=== PATIENT | female | born 1990 | race Hispanic/Latino ===

== ENCOUNTER 2016-12-18 10:35 | Observation (INO) | payer OTHER ==
[2016-12-18] VITALS (14 sets, daily range): BP systolic 98–149; BP diastolic 48–82; PULSE 71–97; RESP 16–18; O2SAT 94–100
[~2016-12-18] VITALS: Ht 149.9 cm; Wt 62.2 kg
[~2016-12-18 10:35] MED LIST: ALBU8.5H4 IH; PREN1TAB80 PO
[2016-12-18] MEDS ORDERED: Ondansetron 2 mg/mL 2 mL Inj IVPUSH ONE (10:40)
--- NOTE | 2016-12-18 10:40 | ED.REPORT ---
HPI-Chest Pain Under 40 Date of Service Dec 18, 2016 ED Provider: Sudeep Flores DO Pt is a 26 y/o healthy female presenting to the ED via EMS from Urgent Care due to near-syncopal episode today. The patient woke up at 05:00 today coughing. 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 Pt denies palpitations, CP, vomiting, fever, chills, SOB. She had a similar episode of lesser severity 2 days ago while washing dishes. There is a family hx of SC and sudden cardiac arrest s/p AICD placement at an early age of 28 in her father. Coincidentally she has been experiencing intermittent fatigue for 1 month. She takes no meds. Nursing Notes Stated Complaint: CHEST PAIN Chief Complaint: General Complaint Nursing Notes Reviewed: Yes Allergies: Coded Allergies: shrimp (Verified Allergy, Mild, TONGUE SWELLS, 12/18/16) PT STATES SHE HAS EATEN IT SINCE AND HAS NOT GOTTEN ANY SWELLING. No Active Prescriptions or Reported Meds General Time Seen by MD: 10:38 Chief Complaint Other (near sync) Hx Obtained From: Patient, EMS Arrived By: Ambulance Sudden in Onset?: Yes Onset Occurred: 1 - 4 hours ago Symptom Duration: 1 - 15 minutes Severity: Current: No pain currently Severity: Maximum: No pain Similar Sx Previous: No Past Medical History Past Medical History Previous suicide attempt Migranes Gestational DM Past Surgical History D&C Implantable control Smoking History Former Smoker Social History Alcohol Use: In recovery Drug Use: Denies drug use Other Social History: Good social support, Lives with children Ambulatory Status Independent Review of Systems Constitutional: Reports: Fatigue, Denies: Chills, Fever Respiratory: Reports: Non-productive cough, Denies: Shortness of breath Cardiovascular: Denies: Chest pain, Dyspnea on exertion, Palpitations GI: Reports: Nausea, Denies: Abdominal pain, Diarrhea, Vomiting Neurologic: Reports: Dizziness, Lightheaded, Syncope (near), Denies: Focal weakness, Numbness Complete sys rev & neg: except as marked. Eyes: Reports: Blurred bilateral, Denies: Visual loss bilateral Physical Exam Initial Vital Signs Vital Signs (First) Date Time Temp Pulse Resp B/P Pulse Ox O2 Delivery O2 Flow Rate FiO2 12/18/16 10:39 36.6 76 18 149/82 100 Room Air 12/18/16 13:00 2 Initial VS: Reviewed, Vital signs normal Head / Eyes: Atraumatic, Normocephalic, PERRL ENT: Mucous membranes moist, Conjunctiva normal, No scleral icterus Neck: Supple, Full range of motion Abdomen / GI: Soft, Non-tender Extremities: Vascular intact, Neuro intact, No swelling, No tenderness Skin: Warm, Dry, No cyanosis Psychiatric: Mood/affect normal, Behavior normal, Normal thought content General/Constitutional: Awake, Alert, No acute distress, Well appearing, Cooperative, Not toxic appearing Respiratory / Chest: Atraumatic, Breath sounds NL, Breath sounds = bilat, No respiratory distress, No rales, No rhonchi, No wheezing, No retractions, No stridor, No chest tenderness, No chest wall deformity, No crepitus Cardiovascular: Heart rate NL, Regular rhythm, Heart sounds NL, No gallop, No murmurs, No rubs, Cap refill not delayed, Peripheral circulation NL Neurologic: Oriented X3, Speech NL, No motor deficits, No sensory deficits, CN II - XII intact, Cerebellar NL, Memory NL Interpretation & Diagnostics Lab Results Interpretation Result Diagram: 12/18/16 1045 12/18/16 1045 Test 12/18/16 10:42 12/18/16 10:45 12/18/16 12:48 12/18/16 12:50 Erythrocyte Sedimentation Rate 7mm/hr (0-32) Procalcitonin 0.02ng/mL (0.00-0.08) Thyroid Stimulating Hormone (TSH) 2.260uIU/mL (0.450-4.500) Free Thyroxine 1.03ng/dL (0.82-1.77) White Blood Count 10.5th/mm3 (3.8-10.1) Red Blood Count 5.23mil/mm3 (3.90-5.20) Hemoglobin 14.6g/dL (12.0-15.6) Hematocrit 43.5% (35.0-46.0) Mean Corpuscular Volume 83.2fL (81-100) Mean Corpuscular Hemoglobin 27.9pg (27.0-35.0) Mean Corpuscular Hemoglobin Concent 33.6% (32.0-37.0) Red Cell Distribution Width 13.7% (12.3-15.4) Platelet Count 157bil/L (150-400) Neutrophils (%) (Auto) 72.2% (40-74) Lymphocytes (%) (Auto) 21.3% (14-46) Monocytes (%) (Auto) 3.9% (4-12) Eosinophils (%) (Auto) 2.3% (0-5) Basophils (%) (Auto) 0.2% (0-3) Sodium Level 140mEq/L (134-144) Potassium Level 3.8mEq/L (3.5-5.2) Chloride Level 103mEq/L (97-108) Carbon Dioxide Level 22mmol/L (18-29) Blood Urea Nitrogen 10mg/dL (6-20) Creatinine 0.50mg/dL (0.57-1.00) Estimat Glomerular Filtration Rate 210mL/min (>59) Glucose Level 74mg/dL (60-99) Calcium Level 9.4mg/dL (8.5-10.1) Magnesium Level 2.1mg/dL (1.6-2.6) Total Bilirubin 0.3mg/dL (0.0-1.2) Aspartate Amino Transf (AST/SGOT) 22U/L (0-50) Alanine Aminotransferase (ALT/SGPT) 19U/L (0-32) Alkaline Phosphatase 65U/L (25-150) Total Creatine Kinase 130U/L (21-215) Creatine Kinase MB 1.9ng/mL (0.0-5.3) Creatine Kinase MB % % (0.0-5.0) Total Protein 8.1g/dL (6.4-8.4) Albumin 4.2g/dL (3.4-5.0) Troponin T < 0.010ug/L (0.0-0.011) Urine Color Yellow (YELLOW) Urine Appearance Clear (CLEAR,HAZY) Urine pH 6.0 (5.0-8.0) Urine Specific [place] 1.030 (1.003-1.035) Urine Protein Negativemg/dL (NEG,TRACE) Urine Glucose (UA) Negativemg/dL (NEGATIVE) Urine Ketones Tracemg/dL (NEGATIVE) Urine Occult Blood Negative (NEGATIVE) Urine Nitrite Negative (NEGATIVE) Urine Bilirubin Negative (NEGATIVE) Urine Urobilinogen Normalmg/dL (NORMAL) Urine Leukocyte Esterase Negative (NEGATIVE) Urine RBC 0-2/hpf (0-2) Urine WBC 0-5/hpf (0-5) Urine Epithelial Cells Few/hpf (NONE-MOD) Urine Crystals None seen (NONE SEEN) Urine Bacteria None/hpf (NONE-FEW) Urine Hyaline Casts None/lpf (NONE) Urine Granular Casts None seen (NONE SEEN) Urine Waxy Casts None seen (NONE SEEN) Urine Red Blood Cell Casts None seen (NONE SEEN) Urine White Blood Cell Casts None seen (NONE SEEN) Urine Mucus Present (None Seen) Urine Trichomonas None seen (NONE SEEN) Urine Yeast None (NONE SEEN) Urinalysis Comment None Urine Culture Reflexed Not indicated Urine HCG, Qualitative Negative (Negative) Hold Urine Received (Received) ECG Interpretation ECG Interpretation: Sinus rhythm rate 77 RsR' with 2mm ST elevation and coincident T wave inversion in V1, V2 without reciprocal ischemic appearing changes Time: 10:55 Interpreted by: ED physician X-Ray Chest Interpretation Chest Xray Interpretation: IMPRESSION: No acute cardiopulmonary disease. Dictated by: Alo Julien RRA Interpreted: Yordy Suarez MD on 12/18/2016 at 11:04 Transcribed by: QUINN on 12/18/2016 at 11:04 View: Portable, 1 view Interpretation / Wet Read by: Interpret - Radiologist Re-Eval/Medical Decision Med Decision/Clinical Course Exertional syncope along with a type I Brugada pattern and a reported family history of cardiac arrest. Concern for Brugada syndrome. Cardiology is immediately contacted with the findings on EKG and has recommended observation in the hospital and cardiology consultation. Source of Hx: Old records, EMS Re-Evaluation/Progress #1: Time of Eval: 12:27 Re-Evaluation/Progress Note: Pt rechecked. Informed pt of need for repeat troponin. The sister is now in the room and is insistent that her father had a cardiac arrest which required he be shocked back to life with paddles. Re-Evaluation/Progress #2: Time of Eval: 12:53 Re-Evaluation/Progress Note: Pt rechecked. Her father is in the room. He states he has been shocked back to life many times. Informed pt of need for admission. Pt understands and agrees with plan for admission. All questions addressed. Consultation #1: Referral / Consult Name: Iza Celaya MD Consulted With: Cardiology Call Returned at: 11:26 Healthcare Applications Analyst: Agrees with evnat, Agrees with plan Note: Will review EKGs, recommends I contact Dr. Grimes Consultation #2: Call Returned at: 11:45 Healthcare Applications Analyst: Agrees with eval, Agrees with plan Note: Case discussed. Recommends admission for observation. Counseled Regarding: Diagnosis, Lab results, Need for admission Discharge & Departure Primary Impression: Near syncope Additional Impressions: Abnormal EKG Family history of sudden cardiac in father Disposition: ADMITTED TO HOSPITAL Discharge Condition All VS Reviewed: Yes Condition: Stable Referrals: Joyce Lee (PCP) Martín Attestation Portions of this note were transcribed by Bird Mccann. I, Dr. Flores personally performed the history, physical exam and medical decision-making; I reviewed and confirmed the accuracy of the information in the transcribed note. Signed by Martín Dawn, 12/18/16 - [phone] copies to: Joyce Lee Timothy S DO Dec 18, 2016 10:40 BIRD MCCANN Dec 18, 2016 10:46
[2016-12-18] MEDS ORDERED: 0.9% Sodium Chloride 1,000 ML IV ONE (10:55)
[2016-12-18 11:04] LABS: BASOPHILS % (AUTO) 0.2 % (0-3); EOSINOPHILS % (AUTO) 2.3 % (0-5); MONOCYTES % (AUTO) 3.9 % (4-12); Mean Corpuscular Hemoglobin 27.9 pg (27.0-35.0); Mean Corpuscular Volume 83.2 fL (81-100); NEUTROPHILS % (AUTO) 72.2 % (40-74); Platelet Count 157 bil/L (150-400)
--- NOTE | 2016-12-18 11:04 | DRSVH ---
PROCEDURE: X-RAY CHEST ONE VIEW, PORTABLE ([id number]) INDICATIONS: chest pain TECHNIQUE: One view of the chest was acquired. COMPARISON: None. FINDINGS: Surgical changes and devices: None. Lungs and pleura: No pleural effusions or pneumothorax. Lungs are clear. Mediastinum: Mediastinal contours appear normal. Heart size is normal. Bones and chest wall: No suspicious bony lesions. Overlying soft tissues appear unremarkable. IMPRESSION: No acute cardiopulmonary disease. Dictated by: Alo BRADFORD Interpreted: Yordy Suarez MD on 12/18/2016 at 11:04 Transcribed by: QUINN on 12/18/2016 at 11:04 Approved by: Yordy Suarez M.D. on 12/18/2016 at 16:40
[2016-12-18] MEDS ORDERED: LidocaineVisc 2%:Antacid 1:1 10 mL Syringe PO ONE (11:25)
[2016-12-18 11:41] LABS: Creatine Kinase 130 U/L (21-215); Magnesium 2.1 mg/dL (1.6-2.6)
[2016-12-18] MEDS ORDERED: Alum-Mag Hydrox-Simeth 30 mL Suspension ONE (13:14)
[2016-12-18] MEDS ORDERED: Alum-Mag Hydrox-Simeth 30 mL Suspension PO PRN (13:35)
[2016-12-18] MEDS ORDERED: Polyethylene Glycol (PEG) 17 Gm Powder PO PRN (13:35)
[2016-12-18] MEDS ORDERED: Ondansetron 2 mg/mL 2 mL Inj IVPUSH PRN (13:35)
--- NOTE | 2016-12-18 14:09 | NUR ---
Admit nurse note Admission assessment completed in the ER with sister, father and daughter at bedside. Pt. 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 States she has been overly fatigued lately, so that she's been drinking red bulls all the time. She also gives hx of anxiety and depression which she was previously treated for but stopped taking meds. "I don't like taking pills." She states she has had a great deal of stress lately and has been coping by "ignoring it." Sister states pt. has been angry a lot. When asked if she feels safe at home pt. hesitates but answers "yes." No further investigation was made as there are so many visitors. Pt. states she is and asks about the medications she has been given, then states she will stop her 2 year old during her stay here. Shrimp allergy verified and sticker placed on name band. Med history obtained, pt states her inhaler is outdated because she hasn't needed it in a while. Report called to Izabella Rader. Social work referral made.
[2016-12-18 14:18] LABS: APPEARANCE,URINE CLEAR (CLEAR,HAZY); COLOR,URINE YELLOW (YELLOW)
[2016-12-18 14:19] LABS: OCCULT BLOOD,URINE NEGATIVE (NEGATIVE); UROBILINOGEN,URINE NORMAL (NORMAL)
--- NOTE | 2016-12-18 15:51 | PCM.HPMED ---
Subjective Date of Service Dec 18, 2016 Primary Provider: Admitting Physician: Larry Whitney MD Primary Care Physician: Joyce Lee Attending Physician: Larry Whitney MD Chief Complaint: Dizziness History of Present Illness: Edith Amos is a health 26 year old woman who presented to the [facility] ED via EMS from Urgent Care with a near-syncopal episode today. The patient states that she felt poorly when she woke up but proceeded to work. 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 She proceeded to sit down but noticed that her vision has been blurry and her tongue was tingling. She states that over the last month she has had multiple episodes of blurred vision and has been feeling very fatigued for the last month. She denies any travel. She denies any palpitations, skipped beats or chest pain. She denies any fevers, chills, weight loss, or night sweats. She has noticed constipation. In the ED her vitals were stable. Her case was reviewed with Dr. Zaman and Dr. Grimes by the ED physician who have agreed to consult. Review of Systems: A comprehensive review of systems was conducted with the patient and found to be negative except as above in the History of Present Illness. Allergies Coded Allergies: shrimp (Verified Allergy, Mild, TONGUE SWELLS, 12/18/16) PT STATES SHE HAS EATEN IT SINCE AND HAS NOT GOTTEN ANY SWELLING. Home Medications None PMH Previous suicide attempt Migraines Gestational DM Surgical History D&C Implantable control Family History The patient notes an extensive family history of cardiac arrest at a young age. Her father has SLE, Rheumatoid arthritis, and possible AICD, but more likely pacemaker. She states she has had multiple family members at a young age due to cardiac arrest. Social History Hx Alcohol Use: Yes Hx Substance Use: Yes (marijuana as teen) Hx Tobacco Use: No Smoking Status: Never Smoker Exam Vital Signs Vital Sign - Last Date Time Temp Pulse Resp B/P Pulse Ox O2 Delivery O2 Flow Rate FiO2 12/18/16 14:15 36.7 97 18 116/71 100 Room Air 12/18/16 14:00 2 Exam General: No acute distress, well-developed, well-nourished, appropriately interactive HEENT: Normocephalic, atraumatic. External ears without defect. Pupils equal, round, and reactive to light and accommodation. Anicteric sclerae, moist conjunctivae, and no lid lag. Oropharynx free of erythema and cobble stoning with moist mucosa. Neck: Supple with full range of motion. No jugular venous distension. No bruits. No lymphadenopathy or thyromegaly. Cardiovascular: Regular rate and rhythm with no murmurs, rubs, or gallops appreciated Pulmonary: Clear to auscultation bilaterally with no crackles, wheezes, or rhonchi. Normal respiratory effort with no use of accessory muscles. Abdomen: Bowel tones present. Soft, nontender, nondistended. No hepatosplenomegaly or masses appreciated. Extremities: No clubbing, cyanosis, edema, or lymphadenopathy appreciated. Skin: Normal temperature, turgor, and texture; no rash, ulcers, or subcutaneous nodules appreciated. Neurological: Cranial nerves grossly intact. Normal muscle strength, tone, and bulk. Reflexes, coordination, and sensory function within normal limits. No known gait impairment. Psychiatric: Normal mood and affect. Alert and oriented to person, place, and time. Lab and Diagnostics Result Diagram: 12/18/16 1045 12/18/16 1045 X-Rays, CTs and MRIs X-RAY CHEST ONE VIEW, PORTABLE IMPRESSION: No acute cardiopulmonary disease. Dictated by: Alo BRADFORD Interpreted: Yordy Suarez MD on 12/18/2016 at 11: 04 Assessment & Plan Edith Amos is a health 26 year old woman who presented to the [facility] ED via EMS from Urgent Care with a near-syncopal episode today. Near-syncopal episode of uncertain etiology -At and the ED there was concern for possible Brugada syndrome however this is unlikely -The EKG is not classically consistent with a Brugada sign -Review of prior EKGs from prior visits do not exhibit the findings noted on today's EKG -Doubt that etiology of near syncope is neurologic so will not be perusing brain imaging -Will await cardiology's recommendations -Telemetry -Orthostatics -ECHO -NPO until cardiology decides on a course of action -COLLIN with reflex give her father's history of SLE and RA -TSH with free T4 CODE STATUS: FULL CODE Patient is admitted under observation status with expected length of stay less than 2 midnights due to severity of presenting symptoms, risk of adverse event, and complexity of treatment plan. Attending Statement The patient was seen and examined independently on 12/18/2016 and case discussed with Dr. Orellana , I agree with the history, exam and plan as outlined in the note above. Lizette Orellana DO Dec 18, 2016 15:51 Larry Whitney MD Dec 18, 2016 16:10
--- NOTE | 2016-12-18 16:08 | NUR ---
ADMIT NOTE Admitted a 26/F into room 3013 this afternoon following report from ED RN Regina Berry. Pt A&Ox4, amb from stretcher to bed and around room with no c/o dizziness or discomfort. She was introduced to staff and room as well as bed controls and call light. Pt on sat 100%. She denies any CP/pressure at this time and is aware to notify staff if these symptoms present. Pt is NPO pending cardiology consult/plan. She is aware of this and compliant. IV intact, flushing without issue. MD in shortly after to assess pt.
--- NOTE | 2016-12-18 18:32 | NUR ---
NPO status Pt NPO pending cardiology consult per hospitalist. Pt frequently asking if she can eat. paged at 1830 and stated if cardiology not by to see pt by 1930, she can eat. Pt updated on this and will pass on to oncoming RN.
[2016-12-19 01:11] VITALS: BP 92/51; PULSE 71; RESP 18; O2SAT 98
[2016-12-19 04:55] VITALS: PULSE 67
[2016-12-19 05:34] VITALS: BP 102/66; PULSE 67; RESP 18; O2SAT 98
[2016-12-19 08:00] VITALS: PULSE 71
[2016-12-19] MEDS ORDERED: Influenza (Adult) Vaccine 0.5 mL Syringe IM ONE (08:30)
--- NOTE | 2016-12-19 09:11 | CONS ---
[address] [address] CONSULTATION REPORT PATIENT: KAMRYN MENDEZ : 1990 MR#: [id number] ADMIT: 12/18/2016 JOB ID: [id number] DATE OF SERVICE: 12/19/2016 ELECTROPHYSIOLOGY CONSULTATION: REQUESTING PHYSICIAN: Larry Whitney M.D. REASON FOR CONSULTATION: Brugada type pattern on EKG. PROBLEM LIST: 1. Family history of mitral valve disease. 2. Possible family history of cardiac arrest, although questionable. 3. Gestational diabetes. 4. Migraines. 5. History of D and C. HOME MEDICATIONS: None. IDENTIFICATION/HISTORY OF PRESENT ILLNESS: The patient is a pleasant 26-year-old woman without significant personal cardiac history who has been feeling ill for the last 3-4 weeks with fatigue and diffuse body aches. Workup has been unrevealing as of yet. She has had a mildly elevated white blood cell count. She ultimately was at work early yesterday morning. She had not eaten or drank. She felt a surge of coughing. She then became nauseated. 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 She became lightheaded, sat down, persisted in lightheadedness and then ultimately went to Urgent Care where her EKG showed sinus rhythm, but ST segments in V1 and V2 questionable for Brugada type pattern. She was sent to the ED and has remained hemodynamically stable. She feels well this morning. She was presyncopal yesterday but denies any history of syncope whatsoever. She tells me that she has felt this way in the past when she was with her son. She has never had an echocardiogram. Her EKG shows sinus rhythm with a Brugada type 1 pattern. Telemetry overnight was unrevealing. Her father has an extensive cardiac history, and has been followed for the last 20+ years by Dr. Weinstein. He has a history of mitral valve disease and underwent mitral valve replacement. This was complicated by an atypical atrial flutter which was difficult to control. He ultimately underwent AV junction ablation and pacemaker implant. There is mention of cardiac arrest by the father and his other daughter. I went through the chart and could not find evidence of this. We are still working on obtaining more records from the father's past history. IMPRESSION AND RECOMMENDATION: The patient is a pleasant 26-year-old woman without significant cardiac history who had an event yesterday associated with near syncope that in my read is most consistent with dehydration and vasovagal activity as opposed to a ventricular dysrhythmia. Her EKG is highly suspicious for Brugada pattern. She does not have a personal history of syncope or cardiac arrest. Both I and Dr. Whitney are investigating the claim of cardiac arrest for her father. We will obtain an echocardiogram as well as a 30 day Holter monitor and I will see her in clinic. If indeed she does have a family history of cardiac arrest and has Brugada pattern, I would recommend a primary prevention ICD implant. If not I am not suspicious about yesterday's events and I think watchful waiting would be in order. PLAN: 1. Echocardiogram. 2. Obtain further records about father's potential history of cardiac arrest. 3. Thirty day event monitor. 4. Followup with me in clinic. 5. If family history is positive for cardiac arrest and patient has Brugada pattern, I think a single-chamber primary prevention ICD is warranted. Thank you very much for allowing me to participate in the care of this patient. Please call with questions. I spent one hour with this patient coordinating care, reviewing her chart, and 50% of this time was spent in counseling.
[2016-12-19 09:59] VITALS: BP 113/72; PULSE 66; RESP 18; O2SAT 98
--- NOTE | 2016-12-19 10:44 | NUR ---
Social Work: Screening / D/C Data: Pt is a 26 y/o female admitted for near syncope brugada sign. Pt's PCP is Dr Lee, pt's insurance is [employer]. EMR reviewed. D/C orders are in. No d/c planning needs anticipated at this time. BREAKFAST AND ROOM ATTENDANT will continue to follow if needs arise. Assessment: Pt who is independent at baseline. Plan: Pt will d/c home via POV today. No d/c planning needs anticipated at this time. BREAKFAST AND ROOM ATTENDANT will continue to follow if needs arise. MARIE Shah
--- NOTE | 2016-12-19 11:52 | DRSVH ---
[facility] [address] [place] [address] Echocardiogram Report Name: KAMRYN MENDEZ NStudy Date: 12/19/2016 He ight: 57 in Hospital Exam Location: [facility] We ight: 137 lb Gender: Female BS A: 1.6 m2 : 1990 Age: 26 yrs BP : 102/66 mmHg Reason For Study: PALP, NEAR SYNCOPE Ordering Physician: HOSPITALIST [facility] Performed By: Elen Figueroa Referring Physician: Skyler EVANGELISTA Interpretation Summary The ejection fraction is estimated to be 60-65%. The right ventricle is normal in size and function. There is no significant valvular heart disease. Procedure: A two-dimensional transthoracic echocardiogram with color flow and Doppler was performed. The study quality was technically adequate. There is no prior echocardiogram noted for this patient. The patient was in normal sinus rhythm during the exam. Left Ventricle: The left ventricle is normal in size, wall thickness, and systolic function without any focal wall motion abnormalities. The ejection fraction is estimated to be 60-65%. Spectral Doppler of the mitral valve shows a normal E/A wave ratio. Right Ventricle: The right ventricle is normal in size and function. Atria: The left atrial size is normal. The right atrium is mildly dilated. There is no Doppler evidence for an atrial septal defect. Mitral Valve: The mitral valve leaflets appear normal. There is no evidence of stenosis, fluttering, or prolapse. There is no mitral regurgitation noted. Aortic Valve: The aortic valve is trileaflet. The aortic valve opens well. There is trivial aortic regurgitation noted. Tricuspid Valve: The tricuspid valve leaflets are thin and pliable. There is a trace or physiologic amount of tricuspid regurgitation. Pulmonary artery pressures cannot be estimated because of the lack of a measurable TR jet velocity. Pulmonic Valve: The pulmonic valve is not well seen, but is grossly normal. There is no pulmonic valvular regurgitation. Great Vessels: The aortic root is normal size. The dimensions of the ascending aorta are normal. The pulmonary artery is normal size. The IVC is of normal diameter and collapses greater than 50% with a sniff. This suggests a low right atrial pressure of 3 mm Hg. Pericardium/ Pleura There is no pericardial effusion. There has been no significant change since the previous study. MMode/2D Measurements & Calculations LVIDd: 4.9 cm LA dimension: 3.2 cm RA long axis LVOT diam: 1.9 cm LVIDs: 2.6 cm AoV Opening FS: 45.9 % LA A2 area: 15.3 cm RA area EPSS: 0.21 cm LA A4 area: 14.6 cm Ao root diam IVSd: 0.72 cm LA length (vol) : 17.7 cm LVPWd: 0.70 cm RA vol asc Aorta Diam LA vol: 39.8 ml : 55.9 ml LA vol index RA Ao Arch Diam (Prox : 35.6 mm/ Trans): 2.5 cm RVDd major IVC diam: 1.7 cm : 5.7 cm LV tovar. diameter/BSA LV sys. diameter/BSA RVD2 (mid) (cm/m^2): 3.1 (cm/m^2): 1.7 : 3.1 cm Doppler Measurements & Calculations Ao V2 max MV E max matthew MV E/A: 1.3 PA V2 max : 167.5 cm/sec : 104.5 cm/sec Med Peak E' Matthew : 104.5 cm/sec Ao max P.2 mmHg MV A max matthew PA mean PG Ao mean P.6 mmHg : 82.0 cm/sec E/E' med: 7.9 LVOT Max Matthew MV P1/2t: 63.2 msec Lat Peak E' Matthew PA Accel Time : 137.4 cm/sec : 0.13 sec MARCELO(I,D): 2.2 cm E/E' lat: 7.4 sev ratio: 0.79 E/e' average Pulm A Revs Dur MV A dur : 0.10 sec MV P1/2t max matthew Ao V2 mean LV V1 max PG PA V2 mean : 112.7 cm/sec : 76.2 cm/sec MVA(P1/2t): 3.5 cm2 Ao V2 VTI: 31.3 cm LV V1 VTI MARCELO(V,D): 2.3 cm2 : 24.6 cm MARCELO indexed to BSA Puljoel Lindsey Revs Dur - MV (cm^2/m^2): 1.4 A Dur: 0.01 msec Electronically signed by: Mick Rhodes on Reading Physician:12/19/2016 11:51 AM
--- NOTE | 2016-12-19 13:30 | PCM.DIMED ---
Paul Teague DO 12/19/16 1330: Discharge Instructions Date of Service Dec 19, 2016 Dates of Hospitalization Dec 18, 2016 at 13:30 Discharge Diagnosis Discharge Diagnosis Near syncopal episode Diet No restrictions Activity No restrictions Call your provider Fever or Chills, Shortness of breath, Bleeding, Chest pain, Vomitting, Excessive diarrhea, Weakness (unilateral) Patient Instructions You are being discharged home today. You were admitted for your near syncopal episode. Your bloodwork and echocardiogram were reassuring and did not indicate any acute heart problems. If you do develop chest pain or have more near syncopal episodes, please go to the ER for evaluation. Please follow up with your PCP within 1-2 weeks. You still have some laboratory values pending and you should follow up about these values with your PCP. Follow-up Provider: Joyce Lee Follow-up with PCP in: 1 week Larry Whitney MD 12/19/16 1636: Discharge Instructions Patient Instructions Dr Grimes will arrange for Holter monitor .Please follow up with Dr grimes Provider: Clinton Grimes MD Follow-up in: 1 week Attending's Statement The patient was seen and examined independently on 12/18/2016 and case discussed with Dr. Maguire , I agree with the discharge instructions as outlined in the note above. Paul Teague DO Dec 19, 2016 13:30 Larry Whitney MD Dec 19, 2016 16:36
[2016-12-19 14:02] VITALS: BP 113/76; PULSE 65; RESP 18; O2SAT 100
--- NOTE | 2016-12-19 17:10 | NUR ---
Discharge Patient ambulated from unit accompanied by family and staff. Patient alert and oriented at time of discharge. Patient denied repeat of syncope episode, dizziness or lightheadedness. No current pain. Patient to be contacted by Cardiology to set up for halter monitor. Discharge instructions/medications reviewed with patient/family prior to discharge. All questions addressed. Patient belongings, discharge instructions in hand. No prescriptions written.
--- NOTE | 2016-12-19 18:06 | PCM.DC.MED ---
Discharge Summary Date of Service Dec 19, 2016 Dates of Hospitalization Date of Hospital Admission Dec 18, 2016 at 13:30 Date of Discharge: Dec 19, 2016 Providers: Admitting Physician: Larry Whitney MD Primary Care Physician: Joyce Lee Attending Physician: Larry Whitney MD Diagnosis at Time of Discharge Diagnosis at Time of Discharge Near syncopal episode Consultations per Dr Grimes The patient is a pleasant 26-year-old woman without significant cardiac history who had an event yesterday associated with near syncope that in my read is most consistent with dehydration and vasovagal activity as opposed to a ventricular dysrhythmia. Her EKG is highly suspicious for Brugada pattern. She does not have a personal history of syncope or cardiac arrest. Both I and Dr. Whitney are investigating the claim of cardiac arrest for her father. We will obtain an echocardiogram as well as a 30 day Holter monitor and I will see her in clinic. If indeed she does have a family history of cardiac arrest and has Brugada pattern, I would recommend a primary prevention ICD implant. If not I am not suspicious about yesterday's events and I think watchful waiting would be in order. PLAN: 1. Echocardiogram. 2. Obtain further records about father's potential history of cardiac arrest. 3. Thirty day event monitor. 4. Followup with me in clinic. 5. If family history is positive for cardiac arrest and patient has Brugada pattern, I think a single-chamber primary prevention ICD is warranted. Procedures XRay, CTs & MRIs X-RAY CHEST ONE VIEW, PORTABLE IMPRESSION: No acute cardiopulmonary disease. Dictated by: Alo Julien [facility] Interpreted: Yordy Suarez MD on 12/18/2016 at 11: 04 Cardiac Echo Impression The ejection fraction is estimated to be 60-65%. The right ventricle is normal in size and function. There is no significant valvular heart disease. Brief History per HPI by Dr Esteban Quezadamarnie Amos is a health 26 year old woman who presented to the [facility] ED via EMS from Urgent Care with a near-syncopal episode today. The patient states that she felt poorly when she woke up but proceeded to work. 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 She proceeded to sit down but noticed that her vision has been blurry and her tongue was tingling. She states that over the last month she has had multiple episodes of blurred vision and has been feeling very fatigued for the last month. She denies any travel. She denies any palpitations, skipped beats or chest pain. She denies any fevers, chills, weight loss, or night sweats. She has noticed constipation. In the ED her vitals were stable. Her case was reviewed with Dr. Zaman and Dr. Grimes by the ED physician who have agreed to consult. Hospital Course Edith Amos is a health 26 year old woman who presented to the [facility] ED via EMS from Urgent Care with a near-syncopal episode today. Near-syncopal episode of uncertain etiology -At and the ED there was concern for possible Brugada syndrome however this is unlikely -The EKG is not classically consistent with a Brugada sign -Review of prior EKGs from prior visits do not exhibit the findings noted on today's EKG -Doubt that etiology of near syncope is neurologic so will not be perusing brain imaging -Cardiology consulted and recommendations as above -Telemetry was unremarkable overnight -Orthostatics benign -ECHO being, results as above -COLLIN with reflex give her father's history of SLE and RA -TSH with free T4 - WNL. -Serum HCG <0.5 -per Dr Grimes's request ,reviewed patient's father chart after obtaining consent from him( patients dad Mr Momo Amos) at bedside.he has history of cardioversion for AFLUTTER BUT NO HISTORY OF CARDIAC ARREST . -Dr Grimes will arrange olter monitor for 1 month and will evaluate her -advised to keep hydrated and follow up with PCP.near syncope may as well be due to dehydration given patient's physically demanding and strenuous work Exam Vital Signs (Last) Date Time Temp Pulse Resp B/P Pulse Ox O2 Delivery O2 Flow Rate FiO2 12/19/16 14:02 36.8 65 18 113/76 100 Room Air 12/18/16 14:00 2 Exam General: Well-developed, well-nourished female who appears in NAD, appropriately interactive HEENT: Normocephalic, atraumatic. External ears without defect. Pupils equal, round, and reactive to light and accommodation. Anicteric sclerae, moist conjunctivae, and no lid lag. Oropharynx free of erythema and cobble stoning with moist mucosa. Neck: Supple with full range of motion. No jugular venous distension. No bruits. Cardiovascular: Regular rate and rhythm with no murmurs, rubs, or gallops appreciated Pulmonary: Clear to auscultation bilaterally with no crackles, wheezes, or rhonchi. Normal respiratory effort with no use of accessory muscles. Abdomen: Bowel tones present. Soft, nontender, nondistended. Extremities: No clubbing, cyanosis, edema, or lymphadenopathy appreciated. Skin: Normal temperature, turgor, and texture; no rash, ulcers, or subcutaneous nodules appreciated. Neurological: Cranial nerves grossly intact. Normal muscle strength, tone, and bulk. Reflexes, coordination, and sensory function within normal limits. Psychiatric: Normal mood and affect. Alert and oriented to person, place, and time. Test 12/18/16 10:42 12/18/16 10:45 12/18/16 12:48 12/18/16 12:50 Erythrocyte Sedimentation Rate 7mm/hr (0-32) Procalcitonin 0.02ng/mL (0.00-0.08) Thyroid Stimulating Hormone (TSH) 2.260uIU/mL (0.450-4.500) Free Thyroxine 1.03ng/dL (0.82-1.77) White Blood Count 10.5th/mm3 (3.8-10.1) Red Blood Count 5.23mil/mm3 (3.90-5.20) Hemoglobin 14.6g/dL (12.0-15.6) Hematocrit 43.5% (35.0-46.0) Mean Corpuscular Volume 83.2fL (81-100) Mean Corpuscular Hemoglobin 27.9pg (27.0-35.0) Mean Corpuscular Hemoglobin Concent 33.6% (32.0-37.0) Red Cell Distribution Width 13.7% (12.3-15.4) Platelet Count 157bil/L (150-400) Neutrophils (%) (Auto) 72.2% (40-74) Lymphocytes (%) (Auto) 21.3% (14-46) Monocytes (%) (Auto) 3.9% (4-12) Eosinophils (%) (Auto) 2.3% (0-5) Basophils (%) (Auto) 0.2% (0-3) Sodium Level 140mEq/L (134-144) Potassium Level 3.8mEq/L (3.5-5.2) Chloride Level 103mEq/L (97-108) Carbon Dioxide Level 22mmol/L (18-29) Blood Urea Nitrogen 10mg/dL (6-20) Creatinine 0.50mg/dL (0.57-1.00) Estimat Glomerular Filtration Rate 210mL/min (>59) Glucose Level 74mg/dL (60-99) Calcium Level 9.4mg/dL (8.5-10.1) Magnesium Level 2.1mg/dL (1.6-2.6) Total Bilirubin 0.3mg/dL (0.0-1.2) Aspartate Amino Transf (AST/SGOT) 22U/L (0-50) Alanine Aminotransferase (ALT/SGPT) 19U/L (0-32) Alkaline Phosphatase 65U/L (25-150) Total Creatine Kinase 130U/L (21-215) Creatine Kinase MB 1.9ng/mL (0.0-5.3) Creatine Kinase MB % % (0.0-5.0) Total Protein 8.1g/dL (6.4-8.4) Albumin 4.2g/dL (3.4-5.0) Troponin T < 0.010ug/L (0.0-0.011) Urine Color Yellow (YELLOW) Urine Appearance Clear (CLEAR,HAZY) Urine pH 6.0 (5.0-8.0) Urine Specific [place] 1.030 (1.003-1.035) Urine Protein Negativemg/dL (NEG,TRACE) Urine Glucose (UA) Negativemg/dL (NEGATIVE) Urine Ketones Tracemg/dL (NEGATIVE) Urine Occult Blood Negative (NEGATIVE) Urine Nitrite Negative (NEGATIVE) Urine Bilirubin Negative (NEGATIVE) Urine Urobilinogen Normalmg/dL (NORMAL) Urine Leukocyte Esterase Negative (NEGATIVE) Urine RBC 0-2/hpf (0-2) Urine WBC 0-5/hpf (0-5) Urine Epithelial Cells Few/hpf (NONE-MOD) Urine Crystals None seen (NONE SEEN) Urine Bacteria None/hpf (NONE-FEW) Urine Hyaline Casts None/lpf (NONE) Urine Granular Casts None seen (NONE SEEN) Urine Waxy Casts None seen (NONE SEEN) Urine Red Blood Cell Casts None seen (NONE SEEN) Urine White Blood Cell Casts None seen (NONE SEEN) Urine Mucus Present (None Seen) Urine Trichomonas None seen (NONE SEEN) Urine Yeast None (NONE SEEN) Urinalysis Comment None Urine Culture Reflexed Not indicated Urine HCG, Qualitative Negative (Negative) Hold Urine Received (Received) Test 12/18/16 14:23 12/19/16 12:15 D-Dimer < 0.50mg/L FEU (<0.50) HCG Beta Subunit 0.500mIU/mL Discharge Medications No Active Prescriptions or Reported Meds Followup Plan Disposition: Home Discharge Diet: No restrictions Discharge Activity: No restrictions Patient Instructions Dr Grimes will arrange for Holter monitor .Please follow up with Dr grimes Follow-up Provider: Joyce Lee Follow-up with PCP in: 1 week Provider: Clinton Grimes MD Follow-up in: 1 week Attending Statement The patient was seen and examined independently on 12/19/2016 and case discussed with Dr. Teague , I agree with the discharge summary as outlined in the note above. copies to: Clinton Grimes MD; Joyce Lee Hong D DO Dec 19, 2016 18:06 Larry Whitney MD Dec 20, 2016 07:18
[2016-12-26 12:08] LABS: Antiribosomal P Antibodies <0.2 AI (0.0-0.9); Antiscleroderma - 70 AB <0.2 AI (0.0-0.9)
== END 2016-12-19 16:15 | disposition home or self-care (01) ==
LOC: EDUNIT# 10:35 → SED 10:35 → EDBD 10:35 → MPC 13:30
PROVIDERS: ADMIT Internal Medicine; ATTEND Internal Medicine
DX: R55 Syncope and collapse (principal); R11.0 Nausea; R42 Dizziness and giddiness; H53.8 Other visual disturbances; R94.31 Abnormal electrocardiogram [ECG] [EKG]; Z23 Encounter for immunization
CPT/HCPCS: 36415; 71010; 80053; 81000; 81025; 82550; 82553; 82948; 83735; 84145; 84439; 84443; 84484; 84702; 85025; 85378; 85651; 86038; 90674; 93005; 96361; 96374; 96375; 99285; C8929; G0378; J2060; J2405; J7030

== ENCOUNTER 2017-05-06 14:17 | Emergency (ER) | payer OTHER ==
[~2017-05-06] VITALS: Ht 142.2 cm; Wt 60.5 kg
[2017-05-06 14:29] VITALS: BP 135/79; PULSE 81; RESP 16; O2SAT 100
[2017-05-06 15:24] LABS: BASOPHILS % (AUTO) 0.3 % (0-3); EOSINOPHILS % (AUTO) 2.3 % (0-5); MONOCYTES % (AUTO) 5.3 % (4-12); Mean Corpuscular Volume 84.1 fL (81-100); NEUTROPHILS % (AUTO) 68.9 % (40-74); Platelet Count 167 bil/L (150-400)
--- NOTE | 2017-05-06 15:53 | DRSVH ---
PROCEDURE: X-RAY CHEST ONE VIEW, PORTABLE ([id number]) INDICATIONS: PAIN TECHNIQUE: One view of the chest was acquired. COMPARISON: [facility], CR, XR CHEST 1VW (PORTABLE), 12/18/2016, 10:45. FINDINGS: Surgical changes and devices: None. Lungs and pleura: No pleural effusions or pneumothorax. Lungs are clear. Mediastinum: Mediastinal contours appear normal. Heart size is normal. Bones and chest wall: No suspicious bony lesions. Overlying soft tissues appear unremarkable. IMPRESSION: No acute cardiopulmonary disease process. Dictated by: Yasmine Martinez MD, PhD on 05/06/2017 at 15:51 Approved by: Yasmine Martinez MD, PhD on 05/06/2017 at 15:52
[2017-05-06 15:56] VITALS: BP 141/81; PULSE 74; RESP 16; O2SAT 100
[2017-05-06 15:57] LABS: TROPONIN T < 0.010 ug/L (0.0-0.011)
[2017-05-06 16:05] LABS: Magnesium 1.8 mg/dL (1.6-2.6)
--- NOTE | 2017-05-06 16:22 | ED.REPORT ---
HPI-Chest Pain Under 40 Date of Service May 06, 2017 ED Provider: Anthony James MD Pt is a 26 year old female presenting to the ED complaining of intermittent chest pain and pressure for the last week and SOB onset last night around 2100 at rest. Associated symptoms include fatigue, dizziness, lightheadedness, dry mouth, non productive cough, nausea, and a decreased appetite. Denies diaphoresis, LE swelling, fever, or vomiting. Nursing Notes Stated Complaint: CHEST PAIN,DIZZY,DIFFICULTY BREATHING Chief Complaint: Chest Pain-Non Cardiac Nature Nursing Notes Reviewed: Yes Allergies: Coded Allergies: shrimp (Verified Allergy, Mild, TONGUE SWELLS, 12/18/16) PT STATES SHE HAS EATEN IT SINCE AND HAS NOT GOTTEN ANY SWELLING. No Active Prescriptions or Reported Meds General Time Seen by MD: 16:19 Chief Complaint Chest pain, Shortness of breath Hx Obtained From: Patient Arrived By: Walk-in Sudden in Onset?: No Onset Occurred: Yesterday Symptom Duration: Since onset Quality: Painful Severity: Current: Moderate Severity: Maximum: Moderate Recent Healthcare: No recent doctor visit, No recent hospitalization Similar Sx Previous: Yes Past Medical History Past Medical History Notes: Patient with admission for syncope and initial concern for an EKG at the [facility] diagnostic but concerning for Brugada syndrome, workup including echocardiogram, cardiac consultation was negative. Additionally turns out the initial reported family history of sudden cardiac was inaccurate, family member was cardioverted for atrial fibrillation instead according to notes in the EMR Past Medical History Previous suicide attempt Migranes Gestational DM Past Surgical History D&C Implantable control Family History Father has hx of blood clots, sister has hx of sickle cell anemia, grandfather of sudden [place] Smoking History Never Smoker Social History Alcohol Use: In recovery Drug Use: Denies drug use Other Social History: Good social support, Lives with children Ambulatory Status Independent Review of Systems Reports dry mouth, decreased appetite Constitutional: Reports: Fatigue, Denies: Fever Respiratory: Reports: Non-productive cough, Shortness of breath Cardiovascular: Reports: Chest pain GI: Reports: Nausea, Denies: Vomiting Musculoskeletal: Denies: Extremity swelling Skin: Denies Diaphoresis Neurologic: Reports: Dizziness, Lightheaded Complete sys rev & neg: except as marked. Physical Exam Initial Vital Signs Vital Signs (First) Date Time Temp Pulse Resp B/P Pulse Ox O2 Delivery O2 Flow Rate FiO2 05/06/17 14:29 37.0 81 16 135/79 100 Room Air Initial VS: Reviewed Head / Eyes: Atraumatic, Normocephalic, PERRL ENT: Mucous membranes moist, Conjunctiva normal, No scleral icterus Neck: Supple, Non-tender, Full range of motion Abdomen / GI: Soft, Non-tender, No guarding, No rebound, No distention Back: No CVA tenderness Extremities: Vascular intact, Neuro intact, No swelling, No tenderness Skin: Warm, Dry, No cyanosis Neurologic: Alert, Oriented, Nonfocal Psychiatric: Mood/affect normal, Behavior normal, Normal thought content General/Constitutional: Awake, Alert, No acute distress, Well appearing, Well developed, Well hydrated Respiratory / Chest: Atraumatic, Breath sounds NL, Breath sounds = bilat, No respiratory distress Cardiovascular: Heart rate NL, Regular rhythm, Heart sounds NL, No gallop, No murmurs, No rubs, Cap refill not delayed Interpretation & Diagnostics Lab Results Interpretation Result Diagram: 05/06/17 1510 05/06/17 1510 Test 05/06/17 15:10 05/06/17 15:18 White Blood Count 9.7th/mm3 (3.8-10.1) Red Blood Count 4.85mil/mm3 (3.90-5.20) Hemoglobin 13.6g/dL (12.0-15.6) Hematocrit 40.8% (35.0-46.0) Mean Corpuscular Volume 84.1fL (81-100) Mean Corpuscular Hemoglobin 28.0pg (27.0-35.0) Mean Corpuscular Hemoglobin Concent 33.3% (32.0-37.0) Red Cell Distribution Width 14.1% (12.3-15.4) Platelet Count 167bil/L (150-400) Neutrophils (%) (Auto) 68.9% (40-74) Lymphocytes (%) (Auto) 23.0% (14-46) Monocytes (%) (Auto) 5.3% (4-12) Eosinophils (%) (Auto) 2.3% (0-5) Basophils (%) (Auto) 0.3% (0-3) Sodium Level 136mEq/L (134-144) Potassium Level 3.7mEq/L (3.5-5.2) Chloride Level 102mEq/L (97-108) Carbon Dioxide Level 21mmol/L (18-29) Blood Urea Nitrogen 13mg/dL (6-20) Creatinine 0.48mg/dL (0.57-1.00) Estimat Glomerular Filtration Rate 221mL/min (>59) Glucose Level 91mg/dL (60-99) Calcium Level 8.7mg/dL (8.5-10.1) Magnesium Level 1.8mg/dL (1.6-2.6) Total Bilirubin 0.2mg/dL (0.0-1.2) Aspartate Amino Transf (AST/SGOT) 24U/L (0-50) Alanine Aminotransferase (ALT/SGPT) 20U/L (0-32) Alkaline Phosphatase 52U/L (25-150) Troponin T < 0.010ug/L (0.0-0.011) Total Protein 7.3g/dL (6.4-8.4) Albumin 3.9g/dL (3.4-5.0) Hold Medley Top Tube Received (Received) Lab Results Interpretation: CBC normal CMP normal Troponin negative ECG Interpretation ECG Interpretation: Normal sinus. Benign repolarization pattern reminiscient but not diagnostic for Brugada syndrome. Please see previous workup which was negative for Brugada syndrome. Time: 14:45 Interpreted by: ED physician Normal ECG Interpretation: Normal rate (73) X-Ray Chest Interpretation Chest Xray Interpretation: IMPRESSION: No acute cardiopulmonary disease process. Dictated by: Yasmine Martinez MD, PhD on 05/06/2017 at 15:51 View: Portable, 1 view Interpretation / Wet Read by: Interpret - Radiologist Re-Eval/Medical Decision Med Decision/Clinical Course This is a pleasant 18-year-old female presents with a sense of mild shortness of breath started yesterday. Patient said she should come get checked out, symptoms are improved today. She had a recent hospitalization for "abnormal EKG -turning out that there was concern for possible Brugada syndrome in the setting of syncope, fortunately work up was negative. She does not appear short of breath, clinically appears well, has normal vitals, normal physical exam, normal labs, unchanged EKG, and a normal chest x-ray. She has no risk factors or features to suggest pulmonary embolism, per rule is negative. The patient is comfortable with reassurance. I am not finding indication pursue additional testing. The patient is a received routine and return precautions and is discharged in good condition. Source of Hx: Old records Re-Evaluation/Progress : Time of Eval: 16:33 Patient Status: Condition improved Re-Evaluation/Progress Note: Updated on x ray and lab results. Discussed plan for discharge. Pt understands and agrees. Differential Diagnosis: Positive: Chest pain, Negative: Acute coronary syndrome, Acute myocardial infarct, Aortic dissection, Aortic stenosis, Asthma exacerbation, Congestive heart failure, Dysrhythmia, Gun shot wound chest, Pneumonia, Pneumothorax, Pulmonary edema, Pulmonary embolism, Stab wound chest, Stable angina, Unstable angina Counseled Regarding: Diagnosis, Lab results, Need for follow-up, When/why to return to ED Discharge & Departure Primary Impression: Dyspnea Dyspnea type: unspecified Qualified Code: R06.00 - Dyspnea, unspecified Disposition: Home Discharge Condition All VS Reviewed: Yes Condition: Improved Additional Instructions: 1. A dangerous cause of the shortnes of breath was not identified. 2. Your EKG and Chest Xray did not reveal a dangerous problem. 3. Activities as tolerated. 4. Return if new or worsening symptoms. Referrals: Joyce Lee (PCP) Samuelibal Attestation Portions of this note were transcribed by Angelique Jorgensen. I, Dr. James personally performed the history, physical exam and medical decision-making; I reviewed and confirmed the accuracy of the information in the transcribed note. Signed by: Martín Mathews, 05/06/2017. copies to: Joyce Lee Matthew F MD May 06, 2017 16:22 ANGELIQUE JORGENSEN May 06, 2017 16:29
[2017-05-06 16:55] VITALS: BP 135/88; PULSE 78; RESP 18; O2SAT 100
== END 2017-05-06 16:56 | disposition home or self-care (01) ==
LOC: SED 14:17
DX: R06.00 Dyspnea, unspecified (principal); Z91.013 Allergy to seafood

== ENCOUNTER → 2017-05-26 | Day surgery (SDC) | payer OTHER ==
[2017-05-26] VITALS (13 sets, daily range): BP systolic 94–112; BP diastolic 51–74; PULSE 78–90; RESP 13–25; O2SAT 98–100
[~2017-05-26] VITALS: Ht 149.9 cm; Wt 60.0 kg
[~2017-05-26] MED LIST changes: -ALBU8.5H4 IH; +DEXTROSE 5% IV ONE; +Heparin 10,000 Unit/1,000 mL NS Premix IV ONE; +Isoproterenol 200 mCg/mL 1 mL Inj IV ONE; +KEN25CR EXT; +Ondansetron 2 mg/mL 2 mL Inj IVPUSH PRN; -PREN1TAB80 PO; +PROCAINAMIDE IV ONE; +fentaNYL-PF 50 mCg/mL 2 mL Inj ONE
--- NOTE | 2017-05-26 07:00 | NUR ---
ADMISSION NOTE FEMALE PT ADMITTED FOR EP STUDY. DISCUSSED PLAN OF CARE WITH PT. SEE ADMIT AND FLOW SHEET
[2017-05-26 07:37] LABS: BASOPHILS % (AUTO) 0.2 % (0-3); EOSINOPHILS % (AUTO) 3.9 % (0-5); MONOCYTES % (AUTO) 5.8 % (4-12); Mean Corpuscular Hemoglobin 28.1 pg (27.0-35.0); Mean Corpuscular Volume 83.6 fL (81-100); NEUTROPHILS % (AUTO) 60.6 % (40-74); Platelet Count 169 bil/L (150-400)
[2017-05-26 08:11] LABS: INR 1.01 ratio
--- NOTE | 2017-05-26 11:12 | NUR ---
Received Received from director of labor and delivery about 1105. VSS. Tele SR. Right groin without bleeding or hematoma. Groin precautions reviewed. Verbalizes understanding. Continue to monitor per order.
--- NOTE | 2017-05-26 11:52 | PROCED ---
[address] [address] PROCEDURE NOTE PATIENT: KAMRYN COLIN : 1990 MR#: [id number] ADMIT: 05/26/2017 JOB ID: [id number] DATE OF SERVICE: 05/26/2017 PREOPERATIVE DIAGNOSIS(ES): 1. 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 2. Family history of sudden cardiac arrest. POSTOPERATIVE DIAGNOSIS(ES): Negative electrophysiology study. PROCEDURE PERFORMED: 1. Comprehensive electrophysiology study with left atrial pacing and recording via the coronary sinus catheter. 2. Arrhythmia provocation with isoproterenol infusion. 3. Fluoroscopy. SURGEON: Clinton Grimes MD TILE INSPECTOR: Jany Mike. ANESTHESIA: Gentle dosing of Versed and fentanyl were utilized for appropriate level of sedation. INDICATION: The patient is a pleasant, 26-year-old, with a structurally normal heart, Brugada type 1 pattern on her EKG, and a family history of sudden cardiac arrest. After discussion of risks and benefits of electrophysiology study for inducibility of VT and VF, she opted to proceed. PROCEDURAL DESCRIPTION: Following informed consent, the patient was taken to the EP laboratory in a fasting. She was prepped and draped in usual sterile fashion. The right inguinal region was infiltrated with 1% lidocaine. Then, using modified Seldinger technique, one 8, one 7, and one 6-Mexican sheath were inserted in the right femoral vein. Under fluoroscopic guidance, a deflectable decapolar catheter was advanced in the coronary sinus with the most proximal bipoles at the os of the sinus.. A CRD 2 catheter was advanced into the His position and a Shasha quadripolar catheter was advanced to the RV apex. A comprehensive electrophysiology service was undertaken with right atrial pacing recording, right ventricular, His bundle recording, and left atrial pacing recording via the coronary sinus catheter. Arrhythmia provocation was undertaken from the RV catheter, both on and off isoproterenol to a dose of 2 mcg/minute. Single double and triple two cycle lengths were performed. No ventricular arrhythmias were induced on antegrade conduction assessment. An antegrade jump was seen without echoes or inducible AV anson reentry tachycardia. This concluded our procedure. All catheters and sheaths were removed. Manual pressure was held for hemostasis. The patient was taken to the ICU for monitoring, bed rest, and discharge. COMPLICATIONS: None. BLOOD LOSS: Negligible. FINDINGS: Normal electrophysiology study with evidence of dual AV anson physiology without inducible AV anson reentry tachycardia and negative study for ventricular dysrhythmia. PLAN: 1. Bed rest x4 hours. 2. Recovery and discharge from the [facility]. 3. Follow up with me in the clinic in four weeks. ATTENDING STATEMENT: Clinton Suggs MD, electrophysiology attending, was present for and supervised/performed all aspects of this procedure.
--- NOTE | 2017-05-26 16:10 | NUR ---
DISCHARGE NOTE UP IN ROOM, GROIN SLIGHTLY TENDER. NO HEMATOMA OR BLEEDING NOTED. INSTRUCTIONS GIVEN. HOME WITH FAMILY
== END | disposition home or self-care (01) ==
LOC: SOUO 05-25 00:16
PROVIDERS: ATTEND Internal Medicine Cardiovascular Disease
DX: I49.8 Other specified cardiac arrhythmias (principal); Z82.41 Family history of sudden cardiac death
CPT/HCPCS: 36415; 80048; 84703; 85025; 85610; 93005; 93620; 93621; 93623; 99152; 99153; C1730; J1644; J2250; J3010; J7659